=== PATIENT | female | born 2005 | race African-American/Black ===

== ENCOUNTER 2023-03-23 18:36 | Emergency (ER) | payer OTHER ==
[~2023-03-23] VITALS: Ht 162.6 cm; Wt 50.0 kg
[2023-03-23 18:52] VITALS: O2SAT 98
[2023-03-23] MEDS ORDERED: VALA100044 MT (20:35)
[2023-03-23] MEDS ORDERED: DOXY100C5 MT (20:35)
[2023-03-23] MEDS ORDERED: CEFTRIAXONE SODIUM 500 MG/VIAL IM ONE (20:45)
[2023-03-23] MEDS ORDERED: LIDOCAINE HCL/PF 1% 10 MG/ML 5ML VIAL INFIL ONE (20:45)
[2023-03-23 21:55] LABS: CLARITY URINE CLEAR (CLEAR); COLOR URINE DARK YELLOW (YELLOW); GLUCOSE URINE NEGATIVE (NEGATIVE); KETONES URINE 3+ (NEGATIVE); LEUKOCYTE ESTERASE URINE NEGATIVE (NEGATIVE); NITRITE URINE NEGATIVE (NEGATIVE); OCCULT BLOOD URINE NEGATIVE (NEGATIVE); PH URINE 5.5 (4.5-8.0); PROTEIN URINE TRACE (NEGATIVE); SPECIFIC GRAVITY URINE 1.027 (1.005-1.030)
[2023-03-23 21:58] LABS: BACTERIA URINE NONE SEEN; SQUAMOUS EPITHELIAL CELL URINE 1+ /lpf (RARE/1+); WBC URINE 0-2 /hpf (0-2); YEAST URINE NONE SEEN
[2023-03-23 22:50] VITALS: BP 109/67; PULSE 67; RESP 22; TEMP 98.2
== END 2023-03-23 22:53 | disposition home or self-care (01) ==
LOC: ER 18:36
DX: B00.1 Herpesviral vesicular dermatitis (principal); A64 Unspecified sexually transmitted disease
CPT/HCPCS: 99283; 86592; 87491; 87591; 81003; 81025; 96372; J0696; J3490